=== PATIENT | female | born 1950 | race Asian ===

== ENCOUNTER 2024-05-26 05:24 | Day surgery (SDC) | payer OTHER ==
[2024-05-24 15:06] VITALS: BMI 25.8
[2024-05-26 08:50] LABS: BASO % 0.6 % (0-2.0); EOS % 2.6 % (0-4.5); HEMATOCRIT 35.8 % (32.4-45.2); HEMOGLOBIN 11.9 GM/dL (10.7-15.3); LYMPH % 30.2 % (8-40); MCH 28.3 pg (25.7-33.7); MCHC 33.2 g/dl (32.0-36.0); MEAN CELL VOLUME 85.3 fl (80-96); MONO % 9.1 % (3.8-10.2); NEUT % 57.5 % (42.8-82.8); PLATELET COUNT 268 10^3/uL (134-434); RDW 14.5 % (11.6-15.6); WHITE BLOOD COUNT 6.8 K/mm3 (4.0-10.0)
[2024-05-26 08:57] LABS: INR 0.97 (0.83-1.09); PROTHROMBIN TIME (PATIENT) 10.6 SEC (9.7-13.0)
[2024-05-26] MEDS ORDERED: FENTANYL CITRATE/PF 50 MCG/ML VIAL ONE (12:03)
[2024-05-26] MEDS: FENTANYL CITRATE/PF 50 MCG/ML VIAL IVPUSH ONE (12:32)
[2024-05-26 14:14] VITALS: BP 133/46; PULSE 60; RESP 18; TEMP 97.3
[2024-05-26 15:56] LABS: BF WBC & OTHER NUCLEATED CELLS 49 /mm3
[2024-05-26 15:57] LABS: BODY FLUID MACROPHAGES 20 %
[2024-05-27 14:07] LABS: BODY FLUID ALBUMIN 0.6 g/dL (Not Estab.)
== END 2024-05-26 14:15 | disposition home or self-care (01) ==
LOC: JRADIR 05:24
PROVIDERS: ATTEND Urology
PROC: 0T913ZZ Drainage of Left Kidney, Percutaneous Approach (ICD-10-PCS; principal; 2024-05-26)
DX: N28.1 Cyst of kidney, acquired (principal)
CPT/HCPCS: 36415; 50390; 82042; 82150; 82465; 82945; 83615; 83986; 84157; 84478; 85025; 85610; 87070; 87075; 87102; 87116; 87205; 87206; 87210; 88108; 88172; 88173; 88305-TC